=== PATIENT | male | born 1990 | race Caucasian/White ===

== ENCOUNTER 2022-11-06 14:08 | Inpatient (IN) | payer OTHER ==
[~2022-11-06] VITALS: Ht 172.7 cm; Wt 90.9 kg
[2022-11-06 15:16] LABS: BASOPHILS % (AUTO) 0.1 % (0.0-2.0); EOSINOPHILS % (AUTO) 0.8 % (1.0-6.0); HEMATOCRIT 46.8 % (41-53); HEMOGLOBIN 15.8 g/dL (13.5-17.5); LYMPHOCYTES # (AUTO) 1.9 K/uL (1.0-4.8); MEAN CORPUSCULAR HEMOGLOBIN 30.3 pg (26.0-34.0); MEAN CORPUSCULAR HGB CONC 33.7 G/dL (31.0-37.0); MEAN CORPUSCULAR VOLUME 90 fL (80-100); MONOCYTES # (AUTO) 0.6 K/uL (0.1-1.0); NEUTROPHILS # (AUTO) 7.5 K/uL (1.8-7.7); NEUTROPHILS % (AUTO) 74.1 % (40.0-70.0); PLATELET COUNT (AUTO) 183 K/uL (150-450); RED CELL DISTRIBUTION WIDTH 12.4 % (11.5-14.5)
[2022-11-06 15:32] LABS: COVID AG,FIA SOURCE NASAL SWAB
[2022-11-06 15:34] LABS: ANION GAP 4 mmol/L (8-16); CALCIUM, TOTAL 9.5 mg/dL (8.8-10.5); CARBON DIOXIDE 34 mmol/L (22-29); CHLORIDE 104 mmol/L (98-107); CREATININE 0.81 mg/dL (0.60-1.30); GLOMERULAR FILTR. RATE CALC > 60 mL/min (>60); GLUCOSE,RANDOM 121 mg/dL (70-110); POTASSIUM 5.1 mmol/L (3.5-5.1); SODIUM SERUM 142 mmol/L (136-145); UREA NITROGEN, BLOOD 15 mg/dL (7-18)
[2022-11-06 15:40] LABS: ALANINE AMINOTRANSFERASE 72 U/L (12-78); ALKALINE PHOSPHATASE 82 U/L (46-116); ASPARTATE AMINOTRANSFERASE 36 U/L (15-37); BILIRUBIN,TOTAL 0.2 mg/dL (0.1-1.0); TOTAL PROTEIN, SERUM 7.1 g/dL (6.4-8.2)
[2022-11-06] MEDS ORDERED: SODIUM CHLORIDE 0.9% 1,000 ML IV ONE (15:45)
[2022-11-06] MEDS ORDERED: MAGNESIUM HYDROXIDE SUSPENSION 30 ML UDCUP PO PRN (15:45)
[2022-11-06] MEDS ORDERED: ONDANSETRON HCL 4 MG/2 ML VIAL IVP PRN (15:45)
[2022-11-06] MEDS ORDERED: LORazepam 2 MG/ML VIAL IVP PRN (15:45)
[2022-11-06] MEDS ORDERED: ACETAMINOPHEN 325 MG TABLET PO PRN (15:45)
[2022-11-06 18:40] VITALS: BP 125/83
[2022-11-06 19:49] VITALS: BP 102/53
[2022-11-06] MEDS: ZOLPIDEM TARTRATE 5 MG TABLET PO PRN (21:13)
[2022-11-07 04:09] VITALS: BP 109/59
[2022-11-07 07:22] LABS: AMPHET/METH SCREEN,URINE POSITIVE (NEGATIVE); BARBITURATE SCREEN, URINE NEGATIVE (NEGATIVE); BENZODIAZEPINES SCREEN,URINE NEGATIVE (NEGATIVE); CANNABINOID SCREEN,URINE NEGATIVE (NEGATIVE); COCAINE SCREEN,URINE NEGATIVE (NEGATIVE); METHADONE SCREEN, URINE NEGATIVE (NEGATIVE); OPIATE SCREEN,URINE NEGATIVE (NEGATIVE); PHENCYCLIDINE SCREEN,URINE NEGATIVE (NEGATIVE)
[2022-11-07 07:55] LABS: APPEARANCE,URINE CLEAR (CLEAR); BILIRUBIN,URINE NEGATIVE (NEGATIVE); GLUCOSE, URINE (UA) NEGATIVE (NEGATIVE); KETONES,URINE NEGATIVE (NEGATIVE); LEUKOCYTE ESTERASE ,URINE NEGATIVE (NEGATIVE); NITRATE,URINE NEGATIVE (NEGATIVE); OCCULT BLOOD,URINE NEGATIVE (NEGATIVE); PROTEIN,URINE TRACE mg/dL (NEGATIVE); UROBILINOGEN,URINE <=1.0 mg/dL (<=1.0)
[2022-11-07 08:19] VITALS: BP 102/62
[2022-11-07] MEDS: FAMOTIDINE 20 MG TABLET PO SCH (09:07)
[2022-11-07 16:09] VITALS: BP 102/59
[2022-11-07] MEDS: ZOLPIDEM TARTRATE 5 MG TABLET PO PRN (19:41)
[2022-11-07 20:41] VITALS: BP 99/62
[2022-11-08] MEDS: FAMOTIDINE 20 MG TABLET PO SCH (07:45)
[2022-11-08 08:05] VITALS: BP 104/64
[2022-11-08 15:35] VITALS: BP 93/48
[2022-11-08 20:16] VITALS: BP 121/72
[2022-11-08] MEDS: ZOLPIDEM TARTRATE 5 MG TABLET PO PRN (20:33)
[2022-11-08] MEDS: DOCUSATE SODIUM 100 MG CAPSULE PO SCH (20:33)
[2022-11-09 08:00] VITALS: BP 116/56
[2022-11-09] MEDS: DOCUSATE SODIUM 100 MG CAPSULE PO SCH (08:42)
[2022-11-09] MEDS: FAMOTIDINE 20 MG TABLET PO SCH (08:42)
== END 2022-11-09 16:33 | DRG 897 ==
LOC: EMS 14:13 → 6S 16:34
PROVIDERS: ADMIT Internal Medicine; ATTEND Internal Medicine
DX: F11.13 Opioid abuse with withdrawal (principal); F15.23 Other stimulant dependence with withdrawal; F17.200 Nicotine dependence, unspecified, uncomplicated; Z20.822 Contact with and (suspected) exposure to COVID-19; K59.00 Constipation, unspecified; Z79.899 Other long term (current) drug therapy
CPT/HCPCS: 80053; 80307; 81003; 85025; 93005; 99285; G0480; J2060